=== PATIENT | female | born 1965 | race Caucasian/White ===

== ENCOUNTER 2020-01-30 16:51 | Emergency (ER) | payer OTHER, SELFPAY ==
[2020-01-30 17:08] VITALS: BP 164/94; BP 170/89; PULSE 100; PULSE 101; RESP 24; TEMP 36.6; O2SAT 96; O2SAT 97; BMI 30.4
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
[2020-01-30] MEDS: Ibuprofen 600 MG TABLET PO (19:39)
[2020-01-30] MEDS: Cyclobenzaprine HCl 10 MG TABLET PO (19:39)
[2020-01-30 20:00] VITALS: BP 150/80; PULSE 88; RESP 20; TEMP 36.7; O2SAT 98
== END 2020-01-30 20:22 | disposition home or self-care (01) ==
PROVIDERS: Emergency Provider Emergency Medicine Emergency Medical Services; PCP Nurse Practitioner Family
DX: S62.521A Displaced fracture of distal phalanx of right thumb, initial encounter for closed fracture (principal); M79.641 Pain in right hand; R07.89 Other chest pain; V43.52XA Car driver injured in collision with other type car in traffic accident, initial encounter; Y93.9 Activity, unspecified; Y92.410 Unspecified street and highway as the place of occurrence of the external cause; Y99.9 Unspecified external cause status; M54.5 Low back pain
CPT/HCPCS: 71046; 73130; 93005; 99283; 99284